=== PATIENT | male | born 1970 ===

== ENCOUNTER 2017-01-14 13:53 | Observation (INO) | payer MEDICAID ==
[2017-01-14 13:59] VITALS: BMI 35.4
[2017-01-14 14:00] VITALS: RESP 18; TEMP 97.9; O2SAT 96
--- NOTE | 2017-01-14 15:00 | C.PDOC ---
History Of Present Illness 46 y/o male with a history of EtOH abuse, presents to the ED with EtOH intoxication that occurred today. Pt notes wanting EtOH detoxification having his last drink hours before. Pt smokes but denies any other drug use. Pt denies fever, chills, diarrhea, SOB, dizziness, suicidal ideation or any other complaints. Time Seen by Provider: 01/14/17 14:04 Chief Complaint (Nursing): Substance Abuse History Per: Patient Onset/Duration Of Symptoms: Hrs Current Symptoms Are (Timing): Still Present Suicide/Self Injury Attempted (Context): None Modifying Factor(s): Alcohol Severity: Mild Associated Symptoms: denies: Suicidal Thoughts, Suicidal Plan Past Medical History Reviewed: Historical Data, Nursing Documentation, Vital Signs Vital Signs: Last Vital Signs Temp 97.9 F 01/14/17 13:59 Pulse 84 01/14/17 13:59 Resp 18 01/14/17 13:59 BP 148/90 01/14/17 13:59 Pulse Ox 96 01/14/17 15:23 - Medical History PMH: Denies: Diabetes, Hepatitis, HIV, HTN, Seizures, Sexually Transmitted Disease Family History: States: Unknown Family Hx - Social History Hx Tobacco Use: Yes Hx Alcohol Use: Yes Hx Substance Use: No - Immunization History Hx Tetanus Toxoid Vaccination: No Hx Influenza Vaccination: No Hx Pneumococcal Vaccination: No Review Of Systems Except As Marked, All Systems Reviewed And Found Negative. Constitutional: Negative for: Fever, Chills Respiratory: Negative for: Shortness of Breath Gastrointestinal: Negative for: Nausea, Vomiting, Diarrhea Neurological: Negative for: Dizziness Psych: Negative for: Suicidal ideation Physical Exam - Physical Exam Appears: Non-toxic, No Acute Distress, Other (EtOH intoxication) Skin: Warm, Dry Head: Atraumatic, Normacephalic Eye(s): bilateral: Normal Inspection Chest: Symmetrical Cardiovascular: Rhythm Regular, No Murmur Respiratory: Normal Breath Sounds, No Rales, No Rhonchi, No Wheezing Gastrointestinal/Abdominal: Soft, No Tenderness Neurological/Psych: Oriented x3, Normal Speech, Normal Cognition ED Course And Treatment - Laboratory Results Result Diagrams: 01/14/17 14:56 01/14/17 14:56 O2 Sat by Pulse Oximetry: 96 (Room air) Pulse Ox Interpretation: Normal Medical Decision Making Medical Decision Making: Plan: -Blood work -Labs -Reassess and disposition ED OBSERVATION Date of observation admission: 01/14/17 Time of observation admission: 15:22 - Observation admission statement Patient is being placed in observation because:: EtOH intoxication - Goals of Observation Goals of observation are:: EtOh detox Disposition - Disposition Disposition Time: 19:00 Condition: STABLE - POA Present On Arrival: None - Clinical Impression Clinical Impression: Alcohol abuse - Scribe Statement The provider has reviewed the documentation as recorded by the Scribe Ayaka baldwin All medical record entries made by the Иванibeladia were at my direction and personally dictated by me. I have reviewed the chart and agree that the record accurately reflects my personal performance of the history, physical exam, medical decision making, and the department course for this patient. I have also personally directed, reviewed, and agree with the discharge instructions and disposition. Physician Patient Turnover Patient Signed Over To: Umesh Roman Handoff Comments: pending sobriety
[2017-01-14 15:03] LABS: BASO % 0.3 % (0.0-2.0); EOS # 0.1 K/uL (0.0-0.7); EOS % 0.9 % (0.0-4.0); HEMATOCRIT 46.5 % (35.0-51.0); LYMPH # 2.2 K/uL (1.0-4.3); LYMPH % 24.4 % (20.0-40.0); MEAN CORPUSCULAR HEMOGLOBIN 34.5 pg (27.0-31.0); MEAN PLATELET VOLUME 7.7 fL (7.2-11.7); MONO # 0.7 K/uL (0.0-0.8); RED CELL DISTRIBUTION WIDTH 14.6 % (11.5-14.5); WHITE BLOOD COUNT 8.9 K/uL (4.8-10.8)
[2017-01-14 15:05] LABS: RBC URINE 1 /hpf (0-3); URINE BILIRUBIN NEGATIVE (NEGATIVE); URINE BLOOD 1+ (NEGATIVE); URINE COLOR Yellow (YELLOW); URINE GLUCOSE (UA) NORMAL (Normal); URINE KETONE NEGATIVE (NEGATIVE); URINE LEUKOCYTE ESTERASE NEG Leu/uL (Negative); URINE PROTEIN 1+ mg/dL (NEGATIVE); URINE UROBILINOGEN NORMAL mg/dL (0.2-1.0)
[2017-01-14 15:10] LABS: CHLORIDE 97 mmol/L (98-107)
[2017-01-14 15:11] LABS: MEAN CELL VOLUME 101.7 fL (80.0-94.0); POTASSIUM 4.5 mmol/L (3.6-5.2); SODIUM 143 mmol/L (132-148)
[2017-01-14 15:13] LABS: ALB/GLOB RATIO 1.3 (1.0-2.1); ALKALINE PHOSPHATASE 102 U/L (38-126); ALT/SGPT 80 U/L (21-72); AST/SGOT 117 U/L (17-59); BILIRUBIN,TOTAL 0.6 mg/dL (0.2-1.3); BLOOD UREA NITROGEN 9 mg/dL (9-20); CARBON DIOXIDE 25 mmol/L (22-30); GFR AFRICAN-AMERICAN > 60; GLUCOSE,RANDOM 103 mg/dL (75-110); TOTAL PROTEIN 8.1 g/dL (6.3-8.3)
[2017-01-14 15:14] LABS: CALCIUM 8.5 mg/dl (8.6-10.4)
[2017-01-14 15:29] LABS: ALCOHOL SERUM 321 mg/dl (0-10)
[2017-01-14 19:35] VITALS: BP 163/104; PULSE 70
== END 2017-01-14 21:29 | disposition home or self-care (01) ==
LOC: C.ER 13:53 → C.9OBSV 15:34
PROVIDERS: ADMIT Emergency Medicine; ATTEND Emergency Medicine
DX: F10.229 Alcohol dependence with intoxication, unspecified (principal)
CPT/HCPCS: 80053; 80320; 80324; 80345; 80346; 80349; 80353; 80358; 80361; 81001; 83992; 85025; 99284; G0378

== ENCOUNTER 2018-12-08 11:40 | Emergency (ER) | payer MEDICAID, OTHER ==
[2018-12-08 11:45] VITALS: BMI 31.7
[2018-12-08 11:51] VITALS: BP 135/82; PULSE 59; RESP 18; TEMP 97.7; O2SAT 96
[2018-12-08] MEDS ORDERED: Aspirin 325 mg EC Tablets PO STA (12:14)
--- NOTE | 2018-12-08 12:16 | C.PDOC ---
History Of Present Illness 48 y/o male with a PMHx of alcohol abuse presents to the ED for evaluation of left-sided chest pain for 1 week. Pain is constant, described as pressure-like and worse with exertion. States that he drank alcohol today to numb the pain. Patient admits to consuming 2 shots of liquor and 1 beer. Patient has never had a cardiac work-up or stress test. 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 Otherwise he denies any SOB, pleuritic pain, palpitations, back pain, dizziness, extremity weakness, numbness, paresthesias, fevers, chills, headache, or any other associated symptoms. Time Seen by Provider: 12/08/18 11:58 Chief Complaint (Nursing): Chest Pain History Per: Patient History/Exam Limitations: no limitations Onset/Duration Of Symptoms: Days (7) Current Symptoms Are (Timing): Still Present Quality: Pressure Exacerbating Factors: Exertion Alleviating Factors: None Past Medical History Reviewed: Historical Data, Nursing Documentation, Vital Signs Vital Signs: Last Vital Signs Temp 97.7 F 12/08/18 11:45 Pulse 59 L 12/08/18 11:45 Resp 18 12/08/18 11:45 BP 135/82 12/08/18 11:45 Pulse Ox 96 12/08/18 11:45 - Medical History PMH: Denies: Diabetes, Hepatitis, HIV, HTN, Seizures, Sexually Transmitted Disease Other PMH: Alcohol abuse Family History: States: Unknown Family Hx - Social History Hx Tobacco Use: Yes Hx Alcohol Use: Yes Hx Substance Use: No - Immunization History Hx Tetanus Toxoid Vaccination: No Hx Influenza Vaccination: No Hx Pneumococcal Vaccination: No Review Of Systems Except As Marked, All Systems Reviewed And Found Negative. Constitutional: Negative for: Fever, Chills, Sweats Eyes: Negative for: Vision Change Cardiovascular: Positive for: Chest Pain (left-sided). Negative for: Palpitations Respiratory: Negative for: Cough, Shortness of Breath Gastrointestinal: Negative for: Nausea, Vomiting, Abdominal Pain, Diarrhea Musculoskeletal: Negative for: Back Pain Neurological: Negative for: Weakness, Numbness, Dizziness Physical Exam - Physical Exam Appears: Well, Non-toxic, No Acute Distress Skin: Warm, Dry, No Diaphoretic Head: Atraumatic, Normacephalic Eye(s): bilateral: Normal Inspection, PERRL, EOMI Oral Mucosa: Moist Neck: Normal ROM Chest: Symmetrical, No Tenderness, No Ecchymosis Cardiovascular: Rhythm Regular, No Murmur Respiratory: Normal Breath Sounds, No Rales, No Rhonchi, No Wheezing Gastrointestinal/Abdominal: Soft, No Tenderness, No Distention Extremity: Bilateral: Atraumatic, Normal Color And Temperature Pulses: Left Radial: Normal, Right Radial: Normal Neurological/Psych: Oriented x3, Normal Speech, Normal Cranial Nerves, Other (Patient ambulatory with steady gait, no slurred speech or signs of acute intoxication) Gait: Steady ED Course And Treatment - Laboratory Results Result Diagrams: 12/08/18 12:21 12/08/18 12:21 ECG: Interpreted By Me, Viewed By Me ECG Rhythm: Sinus Rhythm Interpretation Of ECG: Normal intervals, No STEMI, Nonspecific ST-T wave changes Rate From EC (bpm) O2 Sat by Pulse Oximetry: 96 (RA) Pulse Ox Interpretation: Normal - Other Rad CXR X-Ray: Read By Radiologist Interpretation: Accession No. : [id number]. Patient Name / ID : LUCY FRANK / [id number]. Exam Date : 12/08/2018 12:22:10 ( Approved ). Study Comment : Sex / Age : M / 48Y. Creator : erica tolentino. Dictator : Avis Douglas MD. Leather Roller : Dental Claims Processor : Avis Douglas MD. Approver2 : Report Date : 12/08/2018 12:28:44. My Comment : . Date of service: 12/08/2018. HISTORY: Chest pain. COMPARISON: No prior. TECHNIQUE: Chest PA and lateral. FINDINGS: LINES AND TUBES: None. LUNG AND PLEURA: The lungs are well inflated and clear. No pleural effusion or pneumothorax. HEART AND MEDIASTINUM: The heart is not enlarged. No aortic a therosclerotic calcifications present. The hilar and mediastinal contours are within normal limits. SKELETAL STRUCTURES: The bony structures are within normal limits for the patient's age. VISUALIZED UPPER ABDOMEN: Normal. OTHER FINDINGS: None. IMPRESSION: No active pulmonary disease. Medical Decision Making Medical Decision Making: Impression: Chest Pain, ETOH use Initial Plan: - CMP - Troponin - Lipid panel - Alcohol serum - UDS - CMP - PTT/PT - UA - EKG - Chest x-ray - 325 mg PO Aspirin - Reassess after meds CXR shows no acute disease. EKG shows no STEMI Labs reviewed. 1st trop negative. Triglycerides 195 Alcohol 266 Will seek telemetry observation admission for exertional chest pain. 1:15PM Patient verbalizes desire to leave AMA, unwilling to stay for observation. Advised patient that with alcohol of 266, he cannot sign AMA form. Details of the AMA form discussed with patient, including the risks of leaving, to include , disability, and worsening of symptoms. Emphasized the need for patient to stay in the ED for further testing. Pt continues to want to leave AMA. IV line removed. Patient agrees that he will wait until clinically sober and able to make an informed decision. In the mean time, patient states his daughter is en route to accompany him while he pends clinical sobriety. Patient remains AAOx3 throughout ED stay with clear speech, ambulating with steady gait. Pending full sobriety. Nursing made aware of decision. 1:45PM Went to reassess patient, who has eloped from the ED. Contrary to nursing note, AMA form was not being brought to patient to sign, as he was not yet sober. Pt was pending sobriety on time of elopement. Disposition - Disposition Disposition: ELOPEMENT - ER ONLY Disposition Time: 13:45 Condition: GUARDED Forms: Keenjar (Divehi) - Clinical Impression Clinical Impression: Eloped from emergency department, Chest pain, Alcohol abuse - PA / NATIONAL INSURANCE OFFICER / Resident Statement MD/DO has reviewed & agrees with the documentation as recorded. - Scribe Statement The provider has reviewed the documentation as recorded by the Carolina Li All medical record entries made by the Иванibeladia were at my direction and personally dictated by me. I have reviewed the chart and agree that the record accurately reflects my personal performance of the history, physical exam, medical decision making, and the department course for this patient. I have also personally directed, reviewed, and agree with the discharge instructions and disposition.
[2018-12-08] MEDS ORDERED: Aspirin 325 mg EC Tablets PO ONE (12:24)
[2018-12-08 12:30] LABS: BASO % 0.3 % (0.0-2.0); EOS # 0.1 K/uL (0.0-0.7); EOS % 0.8 % (0.0-4.0); HEMOGLOBIN 15.5 g/dL (12.0-18.0); LYMPH # 2.6 K/uL (1.0-4.3); LYMPH % 30.3 % (20.0-40.0); MEAN CELL VOLUME 101.3 fL (80.0-94.0); MEAN CORPUSCULAR HEMOGLOBIN 34.4 pg (27.0-31.0); MEAN PLATELET VOLUME 8.3 fL (7.2-11.7); MONO # 0.6 K/uL (0.0-0.8); MONO % 6.4 % (0.0-10.0); NEUT # 5.4 K/uL (1.8-7.0); NEUT % 62.2 % (50.0-75.0); NRBC % 0.1 % (0.0-2.0); RBC 4.52 Mil/uL (4.40-5.90); RED CELL DISTRIBUTION WIDTH 17.7 % (11.5-14.5); WHITE BLOOD COUNT 8.6 K/uL (4.8-10.8)
[2018-12-08 12:37] LABS: INR 0.9; PROTHROMBIN TIME 10.1 SECONDS (9.7-12.2)
[2018-12-08 12:46] LABS: ALB/GLOB RATIO 1.5 (1.0-2.1); ALBUMIN 4.2 g/dL (3.5-5.0); ALT/SGPT 19 U/L (21-72); AST/SGOT 36 U/L (17-59); BLOOD UREA NITROGEN 11 mg/dL (9-20); CALCIUM 8.4 mg/dl (8.6-10.4); GFR NON-AFRICAN AMERICAN > 60; HDL CHOLESTEROL 49 mg/dL (30-70)
[2018-12-08 12:49] LABS: URINE BILIRUBIN NEGATIVE (NEGATIVE); URINE BLOOD NEGATIVE (NEGATIVE); URINE CLARITY Clear (Clear); URINE COLOR Straw (YELLOW); URINE GLUCOSE (UA) NORMAL (Normal); URINE LEUKOCYTE ESTERASE NEG Leu/uL (Negative); URINE PROTEIN NEGATIVE (NEGATIVE); URINE UROBILINOGEN NORMAL mg/dL (0.2-1.0)
[2018-12-08 12:57] LABS: LDL CHOLESTEROL 72 mg/dL (0-129)
[2018-12-08 13:18] LABS: BARBITURATES, UR NEGATIVE (NEGATIVE); BENZODIAZEPINES, UR NEGATIVE (NEGATIVE); OPIATES, UR NEGATIVE (NEGATIVE); PHENCYCLIDINE, UR NEGATIVE (NEGATIVE)
--- NOTE | 2018-12-08 13:30 | RAD ---
Date of service: 12/08/2018 HISTORY: Chest pain COMPARISON: No prior. TECHNIQUE: Chest PA and lateral FINDINGS: LINES AND TUBES: None. LUNG AND PLEURA: The lungs are well inflated and clear. No pleural effusion or pneumothorax. HEART AND MEDIASTINUM: The heart is not enlarged. No aortic atherosclerotic calcifications present. The hilar and mediastinal contours are within normal limits. SKELETAL STRUCTURES: The bony structures are within normal limits for the patient's age. VISUALIZED UPPER ABDOMEN: Normal. OTHER FINDINGS: None. IMPRESSION: No active pulmonary disease.
--- NOTE | 2018-12-09 18:22 | CARD ---
APPROVED REPORT Date of service: 12/08/2018 EKG Measurement Heart [id number] AL [id number] <Conclusion> Normal sinus rhythm with sinus arrhythmia Baseline artifact Otherwise normal
== END 2018-12-08 13:47 | disposition left against medical advice (07) ==
LOC: C.ER 11:40
DX: R07.9 Chest pain, unspecified (principal); F10.10 Alcohol abuse, uncomplicated; Y90.8 Blood alcohol level of 240 mg/100 ml or more